=== PATIENT | male | born 1945 | race Caucasian/White ===

== ENCOUNTER 2016-05-26 10:19 | Day surgery (SDC) | payer OTHER, MEDICARE ==
[~2016-05-26] VITALS: Ht 182.9 cm; Wt 122.5 kg
[~2016-05-26 10:19] MED LIST: ALEVE220 MG PO; ASPIR-LOW81 MG PO; ASPIR-TRIN325 M1 PO; Zocor PO
== END 2016-05-26 13:24 | disposition home or self-care (01) ==
LOC: CATH 10:19
PROC: 06H033Z Insertion of Infusion Device into Inferior Vena Cava, Percutaneous Approach (ICD-10-PCS; principal; 2016-05-26)
DX: I87.1 Compression of vein (principal); Z53.8 Procedure and treatment not carried out for other reasons
CPT/HCPCS: C1894; J1644; J2250; J3010; S0020

== ENCOUNTER 2016-06-19 07:03 | Day surgery (SDC) | payer OTHER, MEDICARE ==
[~2016-06-19] VITALS: Ht 182.9 cm; Wt 123.0 kg
== END 2016-06-19 11:11 | disposition short-term general hospital (02) ==
LOC: CATH 07:03
DX: I87.1 Compression of vein (principal); T82.518A Breakdown (mechanical) of other cardiac and vascular devices and implants, initial encounter; Z96.652 Presence of left artificial knee joint; E78.5 Hyperlipidemia, unspecified; I87.8 Other specified disorders of veins; Z79.82 Long term (current) use of aspirin; Z91.013 Allergy to seafood; Z87.891 Personal history of nicotine dependence
CPT/HCPCS: C1725; C1769; C1874; C1887; C1894; J1644; J1650; J2250; J3010; S0020

== ENCOUNTER 2016-08-24 15:31 | Emergency (ER) | payer OTHER, MEDICARE ==
[~2016-08-24] VITALS: Ht 180.3 cm; Wt 123.6 kg
[2016-08-24] MEDS ORDERED: KEFLEX500 MG PO (18:30)
[2016-08-24 19:02] VITALS: BP 134/75
== END 2016-08-24 19:05 | disposition home or self-care (01) ==
LOC: EME 15:31
DX: L03.115 Cellulitis of right lower limb (principal); Z87.891 Personal history of nicotine dependence
CPT/HCPCS: 73630; 93971; 99281; 99283

== ENCOUNTER 2017-05-10 10:42 | Emergency (ER) | payer OTHER, MEDICARE ==
[~2017-05-10] VITALS: Ht 180.3 cm; Wt 124.2 kg
[~2017-05-10 10:42] MED LIST changes: +KEFLEX500 MG PO
[2017-05-10] MEDS ORDERED: TAMIFLU75 MG PO (12:20)
[2017-05-10 12:41] VITALS: BP 140/80
== END 2017-05-10 12:47 | disposition home or self-care (01) ==
LOC: EME 10:42
DX: R05 Cough (principal); R53.83 Other fatigue; R51 Headache; Z87.891 Personal history of nicotine dependence; Z79.82 Long term (current) use of aspirin
CPT/HCPCS: 87502; 99281; 99284